=== PATIENT | female | born 1945 | race Caucasian/White ===

== ENCOUNTER 2016-02-29 17:33 | Emergency (ER) | payer MEDICARE, OTHER ==
--- NOTE | 2016-02-29 18:34 | ER Document Report ---
ED Medical Screen (RME) - General Stated Complaint: NAUSEA Time seen by provider: 18:34 Mode of Arrival: Ambulatory Information source: Patient Notes: 70 yo hyperlipedemic, non smoking, female developed bilateral upper back pain that radiated around to chest associated with diaphoresis, weakness and nausea while watching TV at 5:30 pm. No hx CAD. TRAVEL OUTSIDE OF THE [place] IN LAST 30 DAYS: No - Related Data Allergies/Adverse Reactions: Sulfa (Sulfonamide Antibiotics) Allergy (Verified 02/29/16 18:35) Past Medical History - Past Medical History Cardiac Medical History: Reports: Hx Hypercholesterolemia, Hx Hypertension GI Medical History: Reports: Hx Gastroesophageal Reflux Disease Past Surgical History: Reports: Hx Cholecystectomy, Hx Hysterectomy - Immunizations Hx Diphtheria, Pertussis, Tetanus Vaccination: Yes - ~5 yrs
[2016-02-29] MEDS ORDERED: ASPIRIN 81 MG TABLET, CHEWABLE PO ONE (18:35)
[2016-02-29 19:21] LABS: ABSOLUTE EOSINOPHILS # (AUTO) 0.1 10^3/uL (0.0-0.6); ABSOLUTE LYMPHOCYTES (AUTO) 1.3 10^3/uL (0.5-4.7); ABSOLUTE MONOCYTES (AUTO) 0.6 10^3/uL (0.1-1.4); ABSOLUTE NEUT (AUTO) 7.2 10^3/uL (1.7-8.2); BASOPHILS % (AUTO) 0.3 % (0-2); EOSINOPHILS % (AUTO) 1.3 % (0-6); HEMATOCRIT 37.6 % (36.0-47.0); HEMOGLOBIN 12.4 g/dL (12.0-15.5); HGB HCT DIFFERENCE -0.4; LYMPHOCYTES % (AUTO) 13.9 % (13-45); MEAN CORPUSCULAR HEMOGLOBIN 27.9 pg (27.0-33.4); MEAN CORPUSCULAR HGB CONC 32.9 g/dL (32.0-36.0); MEAN CORPUSCULAR VOLUME 85 fl (80-97); MONOCYTES % (AUTO) 6.7 % (3-13); RED BLOOD COUNT 4.43 10^6/uL (3.72-5.28); RED CELL DISTRIBUTION WIDTH 13.6 % (11.5-14.0); SEGMENTED NEUTROPHILS % (AUTO) 77.8 % (42-78); WHITE BLOOD COUNT 9.2 10^3/uL (4.0-10.5)
[2016-02-29 19:41] LABS: ALANINE AMINOTRANSFERASE 62 U/L (9-52); ALBUMIN 4.3 g/dL (3.5-5.0); ALKALINE PHOSPHATASE 89 U/L (38-126); ANION GAP 13 (5-19); ASPARTATE AMINO TRANSFERASE 148 U/L (14-36); BILIRUBIN,TOTAL 0.6 mg/dL (0.2-1.3); BLOOD UREA NITROGEN 15 mg/dL (7-20); CALCIUM 9.9 mg/dL (8.4-10.2); CARBON DIOXIDE 29 mmol/L (22-30); CHLORIDE 97 mmol/L (98-107); CREATINE KINASE 23 U/L (30-135); CREATININE RESULT 0.77 mg/dL (0.52-1.25); GLUCOSE 129 mg/dL (75-110); POTASSIUM 4.3 mmol/L (3.6-5.0); SODIUM 138.6 mmol/L (137-145); TOTAL PROTEIN 7.5 g/dL (6.3-8.2)
[2016-02-29 19:52] LABS: CREATINE KINASE MB 0.68 ng/mL (<4.55)
[2016-02-29 19:57] LABS: TROPONIN I < 0.012 ng/mL
[2016-02-29] MEDS ORDERED: LIDOCAINE 2% VISCOUS SOLN 20 ML UDCUP PO ONE (20:09)
[2016-02-29] MEDS ORDERED: METOCLOPRAMIDE HCL ORAL SOLN 10 MG/10 ML UDCUP PO ONE (20:09)
[2016-02-29] MEDS ORDERED: MAG HYDROX/AL HYDROX/SIMETH SUSP 30 ML UDCUP PO ONE (20:09)
[2016-02-29] MEDS ORDERED: FAMOTIDINE 20 MG TABLET PO ONE (20:11)
--- NOTE | 2016-02-29 21:31 | EKG REPORT ---
SEVERITY:- ABNORMAL ECG - SINUS RHYTHM LEFT BUNDLE BRANCH BLOCK : Confirmed by: Cristian Bryan 29-Feb-2016 21:31:04
--- NOTE | 2016-02-29 23:45 | ER Document Report ---
ED General - General Chief Complaint: Nausea Stated Complaint: NAUSEA Mode of Arrival: Ambulatory Notes: Patient is a 70-year-old female past medical history of hypertension and hyperlipidemia who presents with acute onset of nausea, epigastric abdominal pain, and pain wrapping her bilateral flanks. Denies a history of similar symptoms in the past. States she took 2 Tums with improvement of the pain and nausea but not complete resolution. She denies any associated chest pain, shortness of breath, or vomiting. Notes that she has had some associated diaphoresis.She has a long-standing history of gastric irritation and takes Nexium daily. She is not spoken to her primary care physician regarding today' s concerns. She did not notice anything seem to trigger her symptoms. She denies any history of coronary artery disease or NM. TRAVEL OUTSIDE OF THE [place] IN LAST 30 DAYS: No - Related Data Allergies/Adverse Reactions: Sulfa (Sulfonamide Antibiotics) Allergy (Verified 02/29/16 18:35) Past Medical History - General Information source: Patient - Social History Smoking Status: Never Smoker Chew tobacco use (# tins/day): No Frequency of alcohol use: None Drug Abuse: None Lives with: Spouse/Significant other Family History: Reviewed & Not Pertinent Patient has suicidal ideation: No Patient has homicidal ideation: No - Past Medical History Cardiac Medical History: Reports: Hx Hypercholesterolemia, Hx Hypertension GI Medical History: Reports: Hx Gastroesophageal Reflux Disease Past Surgical History: Reports: Hx Cholecystectomy, Hx Hysterectomy - Immunizations Hx Diphtheria, Pertussis, Tetanus Vaccination: Yes - ~5 yrs Review of Systems - Review of Systems Notes: Constitutional: Negative for fever. HENT: Negative for sore throat. Eyes: Negative for visual changes. Cardiovascular: Negative for chest pain. Respiratory: Negative for shortness of breath. Gastrointestinal: Positive for abdominal pain, negative for vomiting or diarrhea. Genitourinary: Negative for dysuria. Musculoskeletal: Negative for back pain. Skin: Negative for rash. Neurological: Negative for headaches, weakness or numbness. 10 point ROS negative except as marked above and in HPI. Physical Exam - Vital signs Vitals: Temp Pulse Resp BP Pulse Ox 98.0 F 65 15 127/56 H 99 02/29/16 18:14 02/29/16 18:14 02/29/16 18:14 02/29/16 18:14 02/29/16 18:14 Interpretation: Normal Notes: PHYSICAL EXAMINATION: GENERAL: Well-appearing, well-nourished and in no acute distress. HEAD: Atraumatic, normocephalic. EYES: Pupils equal round and reactive to light, extraocular movements intact, sclera anicteric, conjunctiva are normal. ENT: nares patent, oropharynx clear without exudates. Moist mucous membranes. NECK: Normal range of motion, supple without lymphadenopathy LUNGS: Breath sounds clear to auscultation bilaterally and equal. No wheezes rales or rhonchi. HEART: Regular rate and rhythm without murmurs ABDOMEN: Soft, nontender, normoactive bowel sounds. No guarding, no rebound. No masses appreciated. EXTREMITIES: Normal range of motion, no pitting or edema. No cyanosis. NEUROLOGICAL: No focal neurological deficits. Moves all extremities spontaneously and on command. PSYCH: Normal mood, normal affect. SKIN: Warm, Dry, normal turgor, no rashes or lesions noted. Course - Re-evaluation Re-evalutation: 03/01/16 01:36 Patient presents with epigastric abdominal pain with associated nausea and diaphoresis but overall well appearing at the time of assessment vitals within normal limits. Low clinical suspicion for ACS given clinical history, exam, EKG without ST elevations or depressions. HEART score less than or equal to 3. PE also seems unlikely given clinical history, absence of tachycardia or dyspnea. Will score is 0.. CXR without evidence of pneumothorax or pneumonia. No widened mediastinum. Aortic dissection also seems unlikely given history, symmetric pulses, CXR, and vitals. Given abdominal pain an abdominal ultrasound was done for evaluation of an abdominal aneurysm and was normal. Likewise the remainder patient's labs including 2 sets of troponins remained unremarkable. Patient did have complete resolution of her pain after receiving famotidine and a GI cocktail. Patient does not have a gallbladder and does not drink alcohol. She has no focal epigastric tenderness or clinical history suggest acute pancreatitis. History and exam are also not consistent with an acute mesenteric ischemia, bowel obstruction, or bowel perforation. At this time will discharge with return precautions and follow-up recommendations. Verbal discharge instructions given a the bedside and opportunity for questions given. Medication warnings reviewed. Patient is in agreement with this plan and has verbalized understanding of return precautions and the need for primary care follow-up in the next 24-72 hours. - Vital Signs Vital signs: Temp Pulse Resp BP Pulse Ox 98.4 F 61 20 118/57 L 98 03/01/16 00:15 03/01/16 00:15 03/01/16 00:15 03/01/16 00:15 03/01/16 00:15 - Laboratory Result Diagrams: 02/29/16 19:05 02/29/16 19:05 Laboratory results interpreted by me: 02/29/16 19:05 Chloride 97 L Glucose 129 H AST 148 H ALT 62 H Creatine Kinase 23 L - Diagnostic Test Radiology reviewed: Image reviewed, Reports reviewed Radiology results interpreted by me: 03/01/16 01:47 Chest x-ray: No acute infiltrate or pneumothorax - EKG Interpretation by Me Additional EKG results interpreted by me: 03/01/16 01:48 Normal sinus rhythm. Rate 62. No ST elevations or depressions. Left bundle branch block. Discharge - Discharge Clinical Impression: Epigastric abdominal pain, Nausea Condition: Good Disposition: HOME, SELF-CARE Additional Instructions: You were seen today for upper abdominal pain and nausea. The exact cause of your pain is unclear. However, based on your cardiac enzyme testing, chest x-ray , and EKG it does not appear that it is from an immediately life-threatening cause at this time. It may be related to your stomach and I recommend that you take famotidine 40 mg twice daily. You also need to follow-up with your primary care doctor for consideration of H. pylori testing and GI referral. I also recommended you see your physician within the next 24-48 hours to be evaluated for consideration of a stress test. Please return to emergency department immediately if you have worsening of your pain, shortness of breath, vomiting, become unable to exert yourself due to pain or difficulty breathing, you pass out, or have any pain that radiates into your arms, jaw, or back. Please also return if you have any additional symptoms that are concerning to you. Referrals: KATERINA VILLAGOMEZ MD [Primary Care Provider] - Follow up tomorrow
[2016-03-01 00:29] VITALS: BP 118/57
== END 2016-03-01 00:15 | disposition home or self-care (01) ==
LOC: ER 17:33
DX: K21.9 Gastro-esophageal reflux disease without esophagitis (principal); R11.0 Nausea; R10.13 Epigastric pain; R61 Generalized hyperhidrosis; I44.7 Left bundle-branch block, unspecified; I10 Essential (primary) hypertension; Z79.899 Other long term (current) drug therapy; Z88.2 Allergy status to sulfonamides; Z90.49 Acquired absence of other specified parts of digestive tract; Z90.710 Acquired absence of both cervix and uterus
CPT/HCPCS: 93005; 99284; 36415; 82553; 82550; 85025; 80053; 84484; 71010; 76706; 93010; A9270 ×3; J3490

== ENCOUNTER → 2016-07-30 | Outpatient (CLI) | payer MEDICARE, OTHER ==
--- NOTE | 2016-07-30 13:34 | RADIOLOGY REPORT (SQ) ---
EXAM DESCRIPTION: CT SOFT TISSUE NECK WITHOUT COMPLETED DATE/TIME: 07/30/2016 1:11 pm REASON FOR STUDY: DYSPHAGIA (R13.12), ABN FINDINGS ON DX IMAGING OF OTHER PARTS OF DIGESTIVE R13.12 DYSPHAGIA, OROPHARYNGEAL PHASE R93.3 ABNORMAL FINDINGS ON DX IMAGING OF PRT DIGESTIVE TRACT R07.2 PRECORDIAL PAIN COMPARISON: None. TECHNIQUE: Noncontrast scanning from skull base through lung apices with review of bone, soft tissue and lung windows. Reconstructed coronal and sagittal MPR images reviewed. All images stored on PAC S. All CT scanners at this facility use dose modulation, iterative reconstruction, and/or weight based d osing when appropriate to reduce radiation dose to as low as reasonably achievable (ALARA). [facility]: Dose Right [facility]: CareDose [facility]: Dose Right [facility]: Teradose 4D [facility]: [employer] RADIATION DOSE: 13.94 mGy. LIMITATIONS: None. FINDINGS: SKULL BASE: Intact. MAJOR SALIVARY GLANDS: No solid or cystic masses. No inflammatory changes. LYMPHADENOPATHY: No adenopathy. MUCOSAL MASSES OR ASYMMETRY: No mucosal masses or asymmetry. LARYNX/CORDS: No abnormal findings. LUNG APICES: Clear. BONES: There is some decrease in the C6-C7 and C7-T1 disc space heights with anterior osteophytic lip ping. THYROID: Normal size. No masses. PARANASAL SINUSES: Clear. OTHER: The anterior osteophytic lipping at the C6-C7 and C7-T1 levels with demonstrates minimal impin gement on the posterior wall of the esophagus. IMPRESSION: There is anterior osteophytic lipping at the C6-C7 and C7-T1 disc space levels as noted above which demonstrates minimal impingement on the posterior wall of the esophagus. No other signif icant abnormalities were identified. Other findings as noted above TECHNICAL DOCUMENTATION: JOB ID: [id number] Quality ID # [id number]: Final reports with documentation of one or more dose reduction techniques (e.g., Au tomated exposure control, adjustment of the mA and/or kV according to patient size, use of iterative reconstruction technique) 2010 [employer]- All Rights Reserved
--- NOTE | 2016-07-30 14:13 | RADIOLOGY REPORT (SQ) ---
EXAM DESCRIPTION: CT CHEST WITH COMPLETED DATE/TIME: 07/30/2016 1:11 pm REASON FOR STUDY: CHEST PAIN (R07.9), PRECORDIAL PAIN (R07.2) R13.12 DYSPHAGIA, OROPHARYNGEAL PHASE R93.3 ABNORMAL FINDINGS ON DX IMAGING OF PRT DIGESTIVE TRACT R07.2 PRECORDIAL PAIN COMPARISON: Chest x-ray dated February 2016 TECHNIQUE: CT scan of the chest performed using helical scanning technique with dynamic intravenous contrast injection. Images reviewed with lung, soft tissue and bone windows. Reconstructed coronal and sagittal MPR images reviewed. All images stored on PACS. All CT scanners at this facility use dose modulation, iterative reconstruction, and/or weight based d osing when appropriate to reduce radiation dose to as low as reasonably achievable (ALARA). [facility]: Dose Right [facility]: CareDose [facility]: Dose Right [facility]: Teradose 4D [facility]: [employer] CONTRAST TYPE AND DOSE: 80 Isovue 370- low osmolar. RENAL FUNCTION: Creatinine 0.7 RADIATION DOSE: 14.41 mGy. LIMITATIONS: None. FINDINGS: LUNGS AND PLEURA: No opacities, masses. No pneumothorax. No effusions. A tiny 4 mm pulmo nary nodule is identified in the right mid lung field best seen on image number 23 with followup rm mmendations as noted below. HILAR AND MEDIASTINAL STRUCTURES: There are enlarged mediastinal, subcarinal, and bilateral hilar lym ph nodes right greater than left. HEART AND VASCULAR STRUCTURES: No aneurysm or dissection. No central pulmonary emboli. No pericardi al effusion. HARDWARE: None in the chest. UPPER ABDOMEN: No significant findings. Limited exam. THYROID AND OTHER SOFT TISSUES: No masses. No adenopathy. BONES: No significant finding. OTHER: No other significant finding. IMPRESSION: 4 mm pulmonary nodule with followup recommendations as noted below. No consolidations o r pleural effusions are identified. There is are enlarged mediastinal subcarinal and bilateral hilar lymph nodes right greater than left. Clinical correlation is recommended. This could be related to metastatic disease or an infectious process. The possibility of lymphoma cannot be excluded. COMMENT: FLEISCHNER CRITERIA FOR FOLLOW-UP OF PULMONARY NODULES Incidentally detected new nodules in persons 35 or older. HIGH RISK: History of smoking or other known risk factors. <6mm single solid nodule: LOW RISK: no routine followup. HIGH RISK: optional CT 12 mo. TECHNICAL DOCUMENTATION: JOB ID: [id number] Quality ID # 436: Final reports with documentation of one or more dose reduction techniques (e.g., Au tomated exposure control, adjustment of the mA and/or kV according to patient size, use of iterative reconstruction technique) 2010 [employer]- All Rights Reserved
== END ==
LOC: RAD 12:20
PROVIDERS: ATTEND Internal Medicine Gastroenterology
DX: R13.12 Dysphagia, oropharyngeal phase (principal); R93.3 Abnormal findings on diagnostic imaging of other parts of digestive tract; R07.2 Precordial pain
CPT/HCPCS: 70490; 71260; 82565

== ENCOUNTER → 2016-08-27 | Outpatient (CLI) | payer MEDICARE, OTHER ==
--- NOTE | 2016-08-30 10:10 | RADIOLOGY REPORT (SQ) ---
EXAM DESCRIPTION: PET CT SKULL/THIGH COMPLETED DATE/TIME: 08/27/2016 2:21 pm REASON FOR STUDY: LYMPHADENOPATHY (R59.1) R59.1 GENERALIZED ENLARGED LYMPH NODES COMPARISON: CT chest 07/30/2016 CT soft tissue neck 07/30/2016 CT abdomen pelvis 10/24/2014 RADIONUCLIDE AND DOSE: 11.5 mCi F18 FDG The route of agent administration: Intravenous FASTING BLOOD SUGAR: 101 mg/dl CONTRAST TYPE AND DOSE: No CT contrast given. TECHNIQUE: Blood glucose level was verified. Above dose of FDG was injected intravenously. 2-D seg mented attenuation correction images were obtained from the base of the skull to the midthighs. Nonc ontrast CT images were obtained for attenuation correction and fusion with emission images. CT image s were performed without oral or intravenous contrast and are not sensitive for parenchymal lesions. A series of overlapping emission PET images were obtained. Images reviewed and manipulated at [facility] work station by the radiologist. Images stored on PACS. LIMITATIONS: None. FINDINGS: HEAD AND NECK: No areas of abnormal metabolic activity in the soft tissues of the head and neck. CHEST: There are 2 tiny subpleural noncalcified granulomas along the right middle lobe near the minor fissure, non metabolic on axial image 78 and axial image 75. There is hypermetabolic mediastinal adenopathy as follows: Right para tracheal lymph node 1.7 x 1.5 cm on axial image 65, SUV 5.2 Aortopulmonary window lymph node 2 x 1.4 cm in size axial image 67, SUV 3.3 Right hilar lymph node 2 x 1.5 cm in size on axial image 72, SUV 4.1 Sub- carinal lymph node 2 x 1.3 cm in size axial image 73, SUV 3.7 Left lower hilum lymph node, 1.8 x 1 cm in size axial image 76, SUV 3.8 Anterior left upper hilum 1.4 x 1.2 cm in size axial image 72, SUV 3.0 ABDOMEN AND PELVIS: No areas of abnormal metabolic activity in the abdomen or pelvis. Expected physi ologic activity is present in the genitourinary system and bowel. PROXIMAL LOWER EXTREMITIES: No areas of abnormal metabolic activity in the soft tissues of the lower extremities. BONES: No abnormal metabolic activity in the visualized skeleton. ADDITIONAL CT FINDINGS: Post cholecystectomy and hysterectomy. Small hiatal hernia. OTHER: Blood pool activity 1.8 SUV, liver activity 2.5 SUV IMPRESSION: Hypermetabolic adenopathy in the mediastinum, nonspecific. Probably benign 4 cm right middle lobe subpleural lung nodules COMMENT: FLEISCHNER CRITERIA FOR FOLLOW-UP OF PULMONARY NODULES Incidentally detected new nodules in persons 35 or older. HIGH RISK: History of smoking or other known risk factors. <6mm single solid nodule: LOW RISK: no routine followup. HIGH RISK: optional CT 12 mo. TECHNICAL DOCUMENTATION: JOB ID: [id number] [employer]- All Rights Reserved
== END ==
LOC: RAD 12:14
PROVIDERS: ATTEND Internal Medicine Medical Oncology
DX: R91.1 Solitary pulmonary nodule (principal); R59.1 Generalized enlarged lymph nodes; R91.8 Other nonspecific abnormal finding of lung field
CPT/HCPCS: 78815; A9552

== ENCOUNTER 2017-09-29 17:05 | Emergency (ER) | payer MEDICARE, OTHER ==
--- NOTE | 2017-09-29 20:56 | ER Document Report ---
ED Medical Screen (RME) - General Chief Complaint: Facial Droop Stated Complaint: FACIAL NUMBNESS Time Seen by Provider: 09/29/17 20:46 Mode of Arrival: Ambulatory Information source: Patient Notes: Patient is a 72-year-old female who presents to the emergency department with chief complaint of facial numbness. Patient reports that this started yesterday morning and is located on the left side of her mouth. Patient reports it feels like "Novocaine wearing off". Patient reports that she was assuming the symptoms would resolve on their own however symptoms were still present today so she decided to go to the urgent care to be seen. Patient reports that the numbness is better however it is still present. Patient denies any other neurological symptoms. Denies any numbness or any other area on her body and denies any weakness and patient is alert and oriented, speaking in complete and clear sentences. Patient denies any inability during this last 24 hours of putting her words together, denies any confusion or headache. Patient has past medical history of hypertension and hyperlipidemia. Patient is a non-smoker. Patient denies any heart problems. Patient does not have a primary care provider she reports that she sees Dr. Connelly her CLINICAL RESEARCH MANAGER doctor for her care once yearly. Patient's blood pressure is mildly elevated today, repeat blood pressure with a systolic in the 160s. Patient reports that her blood pressure usually runs in the low 100s-1 teens. Patient does have a history of hypertension however she denies missing any doses of her medications. Exam: Asymmetrical smile. Slight facial droop to left side. Altered sensation to left side of face near mouth. Ceramic Restorer equal bilaterally, good muscle tone and equal strength to upper and lower extremities. No alteration in sensation to upper or lower extremities. Ambulates with steady gait. Patient alert, oriented and speaking in full and complete sentences with clear speech pattern. I have greeted and performed a rapid initial assessment of this patient. A comprehensive ED assessment and evaluation of the patient, analysis of test results and completion of the medical decision making process will be conducted by additional ED providers. Dictation of this chart was performed using voice recognition software; therefore, there may be some unintended grammatical errors. TRAVEL OUTSIDE OF THE [place] IN LAST 30 DAYS: No - Related Data Allergies/Adverse Reactions: Sulfa (Sulfonamide Antibiotics) Allergy (Verified 09/29/17 17:06) Past Medical History - Past Medical History Cardiac Medical History: Reports: Hx Hypercholesterolemia, Hx Hypertension GI Medical History: Reports: Hx Gastroesophageal Reflux Disease Past Surgical History: Reports: Hx Cholecystectomy, Hx Hysterectomy - Immunizations Hx Diphtheria, Pertussis, Tetanus Vaccination: Yes - ~5 yrs Physical Exam - Vital signs Vitals: Temp Pulse Resp BP Pulse Ox 98.3 F 65 18 149/78 H 100 09/29/17 18:36 09/29/17 18:36 09/29/17 18:36 09/29/17 18:36 09/29/17 18:36 Course - Vital Signs Vital signs: Temp Pulse Resp BP Pulse Ox 97.7 F 66 18 163/57 H 99 09/29/17 20:43 09/29/17 20:43 09/29/17 18:36 09/29/17 20:43 09/29/17 20:43 Doctor's Discharge - Discharge Referrals: BENNY BAKER MD [Primary Care Provider] - Follow up as needed
--- NOTE | 2017-09-29 21:31 | RADIOLOGY REPORT (SQ) ---
EXAM DESCRIPTION: CT HEAD WITHOUT COMPLETED DATE/TIME: 09/29/2017 9:11 pm REASON FOR STUDY: facial numbness COMPARISON: None. TECHNIQUE: Axial images acquired through the brain without intravenous contrast. Images reviewed wi th bone, brain and subdural windows. Additional sagittal and coronal reconstructions were generated. Images stored on PACS. All CT scanners at this facility use dose modulation, iterative reconstruction, and/or weight based d osing when appropriate to reduce radiation dose to as low as reasonably achievable (ALARA). [facility]: Dose Right [facility]: CareDose [facility]: Dose Right [facility]: Teradose 4D [facility]: [employer] RADIATION DOSE: CT Rad equipment meets quality standard of care and radiation dose reduction techniq ues were employed. CTDIvol: 53.2 mGy. DLP: 1044 mGy-cm. mGy. LIMITATIONS: None. FINDINGS: VENTRICLES: Normal size and contour. CEREBRUM: No masses. No hemorrhage. No midline shift. No evidence for acute infarction. Normal gra y/white matter differentiation. No areas of low density in the white matter. CEREBELLUM: No masses. No hemorrhage. No alteration of density. No evidence for acute infarction. EXTRAAXIAL SPACES: No fluid collections. No masses. ORBITS AND GLOBE: No intra- or extraconal masses. Normal contour of globe without masses. CALVARIUM: No fracture. PARANASAL SINUSES: No fluid or mucosal thickening. SOFT TISSUES: No mass or hematoma. OTHER: No other significant finding. IMPRESSION: NORMAL BRAIN CT WITHOUT CONTRAST. EVIDENCE OF ACUTE STROKE: NO. COMMENT: Quality ID # 436: Final reports with documentation of one or more dose reduction techniques (e.g., Automated exposure control, adjustment of the mA and/or kV according to patient size, use of iterative reconstruction technique) TECHNICAL DOCUMENTATION: JOB ID: [id number] [employer]- All Rights Reserved Reading location - IP/workstation name: [email or web address]
--- NOTE | 2017-09-29 21:45 | RADIOLOGY REPORT (SQ) ---
EXAM DESCRIPTION: CHEST SINGLE VIEW COMPLETED DATE/TIME: 09/29/2017 9:02 pm REASON FOR STUDY: facial numbness COMPARISON: 02/29/2016 EXAM PARAMETERS: NUMBER OF VIEWS: One view. TECHNIQUE: Single frontal radiographic view of the chest acquired. RADIATION DOSE: NA LIMITATIONS: None. FINDINGS: LUNGS AND PLEURA: No opacities, masses or pneumothorax. No pleural effusion. MEDIASTINUM AND HILAR STRUCTURES: No masses. Contour normal. HEART AND VASCULAR STRUCTURES: Heart normal in size. Normal vasculature. BONES: No acute findings. HARDWARE: None in the chest. OTHER: No other significant finding. IMPRESSION: NO ACUTE RADIOGRAPHIC FINDING IN THE CHEST. TECHNICAL DOCUMENTATION: JOB ID: [id number] [employer]- All Rights Reserved Reading location - IP/workstation name: [email or web address]
[2017-09-29 22:04] LABS: ABSOLUTE EOSINOPHILS # (AUTO) 0.1 10^3/uL (0.0-0.6); ABSOLUTE MONOCYTES (AUTO) 0.5 10^3/uL (0.1-1.4); BASOPHILS % (AUTO) 0.5 % (0-2); EOSINOPHILS % (AUTO) 1.8 % (0-6); HEMATOCRIT 37.9 % (36.0-47.0); LYMPHOCYTES % (AUTO) 26.1 % (13-45); MEAN CORPUSCULAR HEMOGLOBIN 29.4 pg (27.0-33.4); MEAN CORPUSCULAR HGB CONC 34.3 g/dL (32.0-36.0); MEAN CORPUSCULAR VOLUME 86 fl (80-97); MONOCYTES % (AUTO) 6.6 % (3-13); PLATELET COUNT 402 10^3/uL (150-450); RED BLOOD COUNT 4.43 10^6/uL (3.72-5.28); RED CELL DISTRIBUTION WIDTH 13.8 % (11.5-14.0); TOTAL CELLS COUNTED % (AUTO) 100 %; WHITE BLOOD COUNT 7.8 10^3/uL (4.0-10.5)
[2017-09-29 22:14] LABS: INTERNATIONAL RATION (INR) 0.96; PROTHROMBIN TIME 13.3 SEC (11.4-15.4)
[2017-09-29 22:25] LABS: PARTIAL THROMBOPLASTIN TIME 36.8 SEC (23.5-35.8)
[2017-09-29 22:34] LABS: ALANINE AMINOTRANSFERASE 17 U/L (9-52); ALBUMIN 4.4 g/dL (3.5-5.0); ALKALINE PHOSPHATASE 64 U/L (38-126); ANION GAP 10 (5-19); ASPARTATE AMINO TRANSFERASE 63 U/L (14-36); BILIRUBIN,DIRECT 0.3 mg/dL (0.0-0.4); BILIRUBIN,TOTAL 0.6 mg/dL (0.2-1.3); BLOOD UREA NITROGEN 16 mg/dL (7-20); CALCIUM 9.7 mg/dL (8.4-10.2); CARBON DIOXIDE 30 mmol/L (22-30); CHLORIDE 101 mmol/L (98-107); CREATINE KINASE 35 U/L (30-135); GLUCOSE 113 mg/dL (75-110); TOTAL PROTEIN 8.2 g/dL (6.3-8.2)
[2017-09-29 22:45] LABS: CREATINE KINASE MB 0.76 ng/mL (<4.55)
[2017-09-29 22:48] LABS: TROPONIN I < 0.012 ng/mL
[2017-09-29] MEDS ORDERED: PREDNISONE 20 MG TABLET PO ONE (23:11)
--- NOTE | 2017-09-29 23:13 | ER Document Report ---
ED General - General Chief Complaint: Facial Droop Stated Complaint: FACIAL NUMBNESS Time Seen by Provider: 09/29/17 20:46 Mode of Arrival: Ambulatory TRAVEL OUTSIDE OF THE [place] IN LAST 30 DAYS: No - HPI Patient complains to provider of: Facial numbness with left-sided droop left dry eye Notes: Patient continued with symptoms starting greater than 24 hours prior to arrival states morning prior to her visit here. Patient states noticed perioral paresthesias with more numbness in left also states 9 prior noticed it when she woke up in the morning left eye was quite dry with scant amount of purulent material coming from it. Patient otherwise denies any other symptoms denies any trouble speaking denies any unilateral weakness denies any area head trauma. Patient is resting comfortably upon my evaluation. Patient states she has been eating and drinking normally today without any difficulty. Patient states no recent illnesses no sick contacts. As the patient is talking through noticed the patient does have an asymmetrical upper and lower facial movements - Related Data Allergies/Adverse Reactions: Sulfa (Sulfonamide Antibiotics) Allergy (Verified 09/29/17 17:06) Past Medical History - General Information source: Patient - Social History Smoking Status: Never Smoker Family History: Reviewed & Not Pertinent Patient has suicidal ideation: No Patient has homicidal ideation: No - Past Medical History Cardiac Medical History: Reports: Hx Hypercholesterolemia, Hx Hypertension Renal/ Medical History: Denies: Hx Peritoneal Dialysis GI Medical History: Reports: Hx Gastroesophageal Reflux Disease Past Surgical History: Reports: Hx Cholecystectomy, Hx Hysterectomy - Immunizations Hx Diphtheria, Pertussis, Tetanus Vaccination: Yes - ~5 yrs Review of Systems - Review of Systems Constitutional: No symptoms reported EENT: No symptoms reported Cardiovascular: No symptoms reported Respiratory: No symptoms reported Gastrointestinal: No symptoms reported Genitourinary: No symptoms reported Female Genitourinary: No symptoms reported Musculoskeletal: No symptoms reported Skin: No symptoms reported Hematologic/Lymphatic: No symptoms reported Neurological/Psychological: Other - Facial numbness with droop -: Yes All other systems reviewed and negative Physical Exam - Vital signs Vitals: Temp Pulse Resp BP Pulse Ox 98.3 F 65 18 149/78 H 100 09/29/17 18:36 09/29/17 18:36 09/29/17 18:36 09/29/17 18:36 09/29/17 18:36 Interpretation: Normal - General General appearance: Appears well, Alert - HEENT Head: Normocephalic, Atraumatic Eyes: Normal Pupils: PERRL - Respiratory Respiratory status: No respiratory distress Chest status: Nontender Breath sounds: Normal Chest palpation: Normal - Cardiovascular Rhythm: Regular Heart sounds: Normal auscultation Murmur: No - Abdominal Inspection: Normal Distension: No distension Bowel sounds: Normal Tenderness: Nontender Organomegaly: No organomegaly - Back Back: Normal, Nontender - Extremities General upper extremity: Normal inspection, Nontender, Normal color, Normal ROM , Normal temperature General lower extremity: Normal inspection, Nontender, Normal color, Normal ROM , Normal temperature, Normal weight bearing. No: Kai's sign - Neurological Neuro grossly intact: Yes Cognition: Normal Orientation: AAOx4 [place] Coma Scale Eye Opening: Spontaneous [place] Coma Scale Verbal: Oriented [place] Coma Scale Motor: Obeys Commands [place] Coma Scale Total: 15 Speech: Normal Cranial nerves: Other - Patient has noticeable left-sided facial droop asymmetrical smile patient also does have drooping of the left eyelid left eyebrow and asymmetrical rays of the left eyebrow consistent with a Key's palsy Motor strength normal: LUE, RUE, LLE, RLE Sensory: Normal - Psychological Associated symptoms: Normal affect, Normal mood - Skin Skin Temperature: Warm Skin Moisture: Dry Skin Color: Normal Course - Re-evaluation Re-evalutation: 09/30/17 01:28 Lab results show any acute abnormality patient did have a head CT performed in triage that was negative for any acute pathology as well. Physical examination is consistent with a Key's palsy. Patient was discharged home steroids patient was encouraged to follow-up primary care physician. - Vital Signs Vital signs: Temp Pulse Resp BP Pulse Ox 98.1 F 84 14 125/63 99 09/29/17 22:25 09/29/17 22:30 09/29/17 23:01 09/29/17 23:01 09/29/17 23:01 - Laboratory Result Diagrams: 09/29/17 21:25 09/29/17 21:25 Laboratory results interpreted by me: 09/29/17 09/29/17 21:25 21:25 APTT 36.8 H Glucose 113 H AST 63 H Discharge - Discharge Clinical Impression: Key palsy Disposition: HOME, SELF-CARE Instructions: Key's Palsy ([facility]), Family Physicians / Practices, Steroid Medication Additional Instructions: Please make sure you take the medication as prescribed. Would recommend following up with your primary care physician or the physicians provided. Return to ER if any symptoms worsen. Prescriptions: Prednisone [Deltasone] 60 mg PO DAILY #24 tablet Referrals: BENNY BAKER MD [ACTIVE STAFF] - Follow up as needed
[2017-09-29 23:19] VITALS: BP 125/63
--- NOTE | 2017-09-29 23:35 | EKG REPORT ---
SEVERITY:- ABNORMAL ECG - SINUS RHYTHM INCOMPLTETE LEFT BUNDLE BRANCH BLOCK : Confirmed by: Isidra Roldan MD 29-Sep-2017 23:34:21
== END 2017-09-29 23:32 | disposition home or self-care (01) ==
LOC: ER 17:05
DX: G51.0 Bell's palsy (principal); E78.00 Pure hypercholesterolemia, unspecified; I10 Essential (primary) hypertension; Z90.49 Acquired absence of other specified parts of digestive tract; Z90.710 Acquired absence of both cervix and uterus; Z88.2 Allergy status to sulfonamides
CPT/HCPCS: 93005; 99285; 36415; 82553; 82550; 85025; 85610; 85730; 80053; 84484; 71045; 70450; 93010; A9270; J7512

== ENCOUNTER → 2019-08-14 | Outpatient (CLI) | payer MEDICARE, OTHER ==
--- NOTE | 2019-08-14 10:44 | RADIOLOGY REPORT (SQ) ---
EXAM DESCRIPTION: COOKIE SWALLOW IMAGES COMPLETED DATE/TIME: 08/14/2019 8:43 am REASON FOR STUDY: DYSPHAGIA (R13.10), COUGH (R05) R13.10 DYSPHAGIA, UNSPECIFIED R05 COUGH Choking while eating COMPARISON: None. TECHNIQUE: Videofluoroscopic swallowing examination was performed in conjunction with speech patholo gy. Videofluoroscopic imaging was obtained and reviewed and these are the findings: RADIATION DOSE: 1 minutes 54 seconds. 4 images saved to PACS. LIMITATIONS: None FINDINGS: The patient was brought into the fluoro room and placed upright on a modified barium swall ow chair. The patient was then given multiple consistencies mixed with barium to swallow under live fluoroscopic video guidance. According to the Speech Pathologist there was trace laryngeal penetrati on without aspiration. Moderate to severe cricopharyngeal hypertrophy causing narrowing of the proxi mal esophagus leading to retention of contrast material within the Piriforms. IMPRESSION: TRACE LARYNGEAL PENETRATION WITHOUT ASPIRATION. 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 RECOMMEND ENDOSCOPY WITH INTERVENTION. PLEASE S SPEECH PATHOLOGIST REPORT FOR OTHER FINDINGS AND RECOMMENDATIONS. COMMENT: Quality ID [id number]: Final reports for procedures using fluoroscopy that document radiation exp osure indices, or exposure time and number of fluorographic images (if radiation exposure indices are not available) TECHNICAL DOCUMENTATION: JOB ID: [id number] 2010 [employer]- All Rights Reserved Reading location - IP/workstation name: [email or web address] [id number]
--- NOTE | 2019-08-14 17:33 | ST Modified Barium Swallow ---
Recommendation - Recommendations Recommendations: Recommend follow up with physician regarding reduced UES opening, resulting in significant pharyngeal residue. Medical Diagnoses - Medical Diagnoses Medical Diagnosis Description & ICD-10 Code(s): R13.10, R05 Other Medical Diagnoses/Co-Morbidities: per patient report: reflux - ICD-10 Tx Diagnosis Coding (1) Dysphagia, unspecified ICD-10 Code(s): R13.10 - DYSPHAGIA, UNSPECIFIED (2) Cough ICD-10 Code(s): R05 - COUGH ST Modified Barium Swallow - General Date: 08/14/19 Referring Physician: Dr. Stokes Risks/Precautions: None Date of Onset: 07/22/17 - approximate onset date Reason for Referral: difficulty swallowing - History -: Medical - Patient arrived independently and acted as her own historian. Patient reports globus sensation and requiring frequent liquid wash during meals. Reports this has been going on for approximately 2 years with no clear cause. Patient does have history of reflux for which she takes medication. She specifically notices symptoms with solids, but will occasionally "get strangled" on liquids. No diet changes at this time. Medications: per patient report: protonix, metoprolol, baby aspirin Allergies: sulfa drugs - Functional Status Prior Functional Status: INDEPENDENT: feeding - independent Current Functional Limitations: feeding - globus, needs liquid wash - Subjective Patient/caregiver goal(s): better swallow Cognitive-Linguistic Function: WNL Speech Intelligibility: WNL Current Nutritional Means: PO Current PO diet: Regular Current symptoms: Coughing, c/o Globus sensation Pain: Patient reports, 0/5 - Objective Assessment: Upright, Left Lateral - Food Trials Used Food trials used: Thin liquids, Pureed, Regular The patient: Was Able to Self Feed - Oral-Motor Skills Dentition: Full Velo-pharyngeal function: Unremarkable Laryngeal Function: clear voicing - Assessment Oral prep: Normal Labial closure: Adequate Leakage: None Mastication: Adequate Oral stage: Normal for this Procedure - Pharyngeal Stage Initiation of Pharyngeal Stage Reflex: Normal Decreased laryngeal elevation: No Reduced Velopharyngeal Closure: no Reduced pressure generation: No reduced tongue-based retraction: No Pre-swallow pooling in valleculae: None Pre-Swallow pooling in pyriforms: None Reduced Thyro-Hyoid approximation: No Reduced epiglottic excursion: Yes Multiple Swallows with: Ineffective Clearance Post-swallow residulas vallecular: Moderate Post-Swallow residuals in pyriforms: Significant Reduced Cricopharyngeal opening: Yes - Fall Risk Assessment Medications/Conditions that increase fall risks include: Antidepressants, sedatives, anti-arrhythmic, diuretic, benzodiazipenes, neuroleptics. BP regulation problems, cardiac problems, balance or gait deficits, neurological problems. Is patient considered at risk for falls: no Fall Risk Actions Taken: No action needed - Behavioral Observations During evaluation process patient: was pleasant, was cooperative, able to answer questions, provided medical history - Treatment / Educational Needs: Treatment/Education Needs: Treatment consisted of patient education on the role of the Speech Pathologist. Patient's plan of care and golas were communicated as well as scheduling and attendance policies. Recommendations for initial home program were shared. Patient demonstrated understanding and verbalized agreement. - Impression/Summary Laryngeal Penetration: Yes - yes, penetration of thin liquids seen with sequential swallows due to reduced movement of liquids thorugh UES, which caused back up of liquids. Tracheal Aspiration: no Risk of Aspiration: Mild Evaluation and Findings: Overall oral and pharyngeal skills within normal heck its. Patient did demonstrate significantly reduced movement of material through UES, requiring multiple swallows to clear, including with liquids. Residue remained in pyriform sinus after the swallow with all textures, residue did increase as texture increased. Of note, there was also reduced epiglottic inversion, however, this did not seem to be impacting swallow function in and of itself. - Recommendations Solid diet recommendations: Regular - recommend avoiding specific foods which may be more difficult to swallow Liquid Diet Modification: Thin Strict aspiration precautions: Yes Pt/Family education and followup with MD: Yes Dysphagia therapy with ENVIRONMENTAL SERVICES MANAGER: no Reflux Precautions: Taught to Patient Recommended techniques: Fully Upright During Meal, Small Bites and Sips, Alternate Bites/Sips Information, Precautions and Recommendations: Patient (Written), Patient (Verbal) Other recommendations: Recommend follow up with physician regarding upper esophageal sphincter function. - Time Total Time: 30 - Plan of Care Strategies to optimize patient understanding include:: ongoing assessment of educational needs, implementation of educational strategies, and re-education. - - -: Thank you for the opportunity to work with this patient and his/her family. Should you have any questions about this patient's plan or progress, I can be reached at [phone].
== END ==
LOC: RAD 08:09
PROVIDERS: ATTEND Otolaryngology
DX: R05 Cough (principal); R13.10 Dysphagia, unspecified
CPT/HCPCS: 74230

== ENCOUNTER 2020-01-14 07:17 | Day surgery (SDC) | payer MEDICARE, OTHER ==
[~2020-01-14 07:17] MED LIST: PROPOFOL INJ 200 MG/20 ML VIAL IV ONE
[2020-01-14 08:26] VITALS: BP 116/62
--- NOTE | 2020-01-14 14:37 | Operative Report ---
Operative Report DATE OF SURGERY: 01/14/20 Operative Report: The risks benefits and alternatives of the procedure explained to the patient in detail and informed consent is obtained.A GIF Olympus video scope was inserted into the patient's mouth and hypopharynx, the esophagus is identified intubated and insufflated, the scope was then advanced through the esophagus stomach and duodenum ,retroflexion maneuver is done, the esophagus stomach and first and second portions of the duodenum examined PREOPERATIVE DIAGNOSIS: Epigastric pain POSTOPERATIVE DIAGNOSIS: Gastritis status post biopsy OPERATION: EGD with biopsy SURGEON: BIMAL SHIELDS ANESTHESIA: LMAC TISSUE REMOVED OR ALTERED: As noted above. COMPLICATIONS: None. ESTIMATED BLOOD LOSS: None. INTRAOPERATIVE FINDINGS: As noted above. PROCEDURE: Patient tolerated the procedure well. No immediate postprocedure complications are noted. Patient is discharged in good condition. Discharge date 01/14/2020. Discharge diet: Regular. Discharge activity: Regular. 2 to 3-week follow-up to discuss findings. Patient is instructed to call the office or proceed to the emergency room should there be any further problems or questions. Wait on the pathology.
== END 2020-01-14 08:32 ==
LOC: END 07:17
PROVIDERS: ATTEND Internal Medicine Gastroenterology
DX: K29.50 Unspecified chronic gastritis without bleeding (principal); I10 Essential (primary) hypertension; K21.9 Gastro-esophageal reflux disease without esophagitis; I25.10 Atherosclerotic heart disease of native coronary artery without angina pectoris; Z79.899 Other long term (current) drug therapy; Z79.82 Long term (current) use of aspirin
CPT/HCPCS: 43239; 88342 ×2; 88305 ×2; 00731; J2704; 731